=== PATIENT | male | born 1990 | race Caucasian/White ===

== ENCOUNTER 2023-05-17 16:47 | Emergency (ER) | payer BC, SELFPAY ==
--- NOTE | 2023-05-17 16:50 | HMH.EDGENADL ---
Discharge Plan Referrals Follow up/Referrals: Provider,Referral, [Primary Care Provider] - See instructions Discharge ED Provider: Ji Leal Adult HPI General Stated complaint: Ao11/04@1615 RT shoulder inj Time Seen by Provider: 05/17/23 16:50 [facility] Disclaimer: The information contained in this section may have been updated after the patient was seen, as this information can be updated by other users. ROS Obtained: Yes Systems reviewed as appropriate & no additional complaints except as documented As per HPI Physical Exam General General appearance: alert and in no apparent distress Head Head exam: atraumatic and normocephalic Eye Eye exam: Present normal appearance Neck Neck exam: Present normal inspection Chest Chest inspection: Present normal inspection and symmetric chest wall rise Respiratory Respiratory exam: Present normal lung sounds bilaterally; Absent respiratory distress Cardiovascular Cardiovascular exam: Present regular rate and normal rhythm Abdominal Exam Abdominal exam: Present soft Neurological Exam Neurological exam: Present alert and oriented X3 Psychiatric Psychiatric exam: Present normal affect and normal mood Skin Skin exam: Present warm and dry Medical Decision Making Medical Records Medical records reviewed: Yes I reviewed the patient's medical records. Talha Inquiry Pt receiving controlled substance: No Medical Decision Narrative: Patient with history and exam per above presenting for evaluation of Diagnoses considered include ED workup and treatment included: Labs were independently interpreted by me, significant for Imaging was independently visualized and interpreted by me, significant for Symptoms at this time are thought to be most consistent with I discussed my clinical impression with patient and answered all questions. At this time, given reassuring workup and exam, I discussed that I have a low index of suspicion for any acute pathology necessitating inpatient management. Specific return precautions were given, with understanding and agreement. Patient will follow up with primary care provider as needed. I prescribed the following medications upon discharge: Critical Care Critical Care Time Critical Care Time: No
[2023-05-17 16:52] VITALS: BP 131/97; PULSE 76; RESP 18; TEMP 37; O2SAT 99; BMI 36.8
--- NOTE | 2023-05-17 17:02 | XR_ITS ---
PROCEDURE INFORMATION: Exam: XR Right Clavicle, Complete Exam date and time: 05/17/2023 5:07 PM Age: 32 years old Clinical indication: Injury or trauma; Fall; Blunt trauma (contusions or hematomas); Shoulder; Right; Additional info: Pain after fall TECHNIQUE: Imaging protocol: Radiologic exam of the right clavicle. Complete exam. Views: Any number of views. COMPARISON: CR Shoulder R 05/17/2023 5:01 PM FINDINGS: Bones/joints: There is no evidence of acute fracture or dislocation. Joint spaces appear preserved. Soft tissues: No significant soft tissue edema. No subcutaneous emphysema or radiopaque foreign bodies. IMPRESSION: No acute posttraumatic osseous injury.
--- NOTE | 2023-05-17 17:02 | XR_ITS ---
PROCEDURE INFORMATION: Exam: XR Right Shoulder Exam date and time: 05/17/2023 5:01 PM Age: 32 years old Clinical indication: Injury or trauma; Fall; Blunt trauma (contusions or hematomas); Shoulder; Right; Additional info: Pain after fall TECHNIQUE: Imaging protocol: Radiologic exam of the right shoulder. Views: 2 or more views. COMPARISON: No relevant prior studies available. FINDINGS: Bones/joints: There is no evidence of acute fracture or dislocation. Joint spaces appear preserved. Soft tissues: No significant soft tissue edema. No subcutaneous emphysema or radiopaque foreign bodies. The visualized right lung is clear. No pneumothorax. IMPRESSION: No acute posttraumatic osseous injury.
[2023-05-17 18:00] VITALS: BP 132/90; PULSE 82; O2SAT 96
[2023-05-17 18:30] VITALS: BP 131/88; PULSE 78; O2SAT 97
[2023-05-17 18:48] VITALS: BP 133/88; PULSE 91; RESP 18; TEMP 36.6
--- NOTE | 2023-05-17 18:48 | PC.NURSE ---
sling applied to pts r arm.
--- NOTE | 2023-05-22 14:40 | HMH.EDGENADL ---
Discharge Plan Disposition Patient Disposition: Home, Self-Care Condition: Good Prescriptions Prescriptions: No Action metformin 500 mg Tablet 500 mg PO BID Referrals Follow up/Referrals: Michael Coles DO [Staff Physician] - See instructions Provider,Referral, [Primary Care Provider] - See instructions Activity Restrictions/Add. Instructions Additional Instructions/Restrictions: I have placed a referral for you to be seen by the orthopedic doctor for follow-up. Please use the sling for comfort as needed, return with any new or worsening symptoms. Please do not keep your shoulder in the sling at all times. Please take anti-inflammatories such as ibuprofen for the pain. Clinical Impressions Clinical Impression: Injury of shoulder Qualifiers: Encounter type: initial encounter Laterality: right Qualified Code(s): S49.91XA - Unspecified injury of right shoulder and upper arm, initial encounter Discharge ED Provider: Ji Leal General Adult HPI General Chief complaint: Extremity Injury, Upper Stated complaint: Ao11/04@1615 RT shoulder inj Time Seen by Provider: 05/17/23 16:50 Mode of Arrival: Ambulatory Source of Information: Patient Limitations: No Limitations Description of Symptoms (Recalled from ER Triage Doc. by RN): fell and injured r shoulder History of Present Illness HPI narrative: Patient complains of right shoulder pain that is moderate in severity nonradiating after nonsyncopal fall, injury is closed. No pain elsewhere. No previous therapies. Injury occurred today. Denies any distal numbness or tingling. No blood thinner usage. No head injury. Related Data Home Medications Medication Instructions Recorded Confirmed metformin 500 mg tablet 500 mg PO BID 05/17/23 05/17/23 Allergies Allergy/AdvReac Type Severity Reaction Status Date / Time No Known Allergies Allergy Verified 05/17/23 16:56 [facility] Disclaimer: The information contained in this section may have been updated after the patient was seen, as this information can be updated by other users. Social History Smoking Status: Never smoker alcohol intake: never current occupational status: other Travel in the last 8 weeks: None ROS Obtained: Yes Systems reviewed as appropriate & no additional complaints except as documented As per HPI Physical Exam General General appearance: alert and in no apparent distress Head Head exam: atraumatic and normocephalic Eye Eye exam: Present normal appearance Neck Neck exam: Present normal inspection Chest Chest inspection: Present normal inspection and symmetric chest wall rise Respiratory Respiratory exam: Present normal lung sounds bilaterally; Absent respiratory distress Cardiovascular Cardiovascular exam: Present regular rate and normal rhythm Abdominal Exam Abdominal exam: Present soft Extremities Exam Extremities exam: Present other (Right shoulder tenderness to palpation, closed, no overlying external signs of injury. No cervical spinal tenderness to palpation) Neurological Exam Neurological exam: Present alert and oriented X3 Psychiatric Psychiatric exam: Present normal affect and normal mood Skin Skin exam: Present warm and dry Medical Decision Making Medical Records Medical records reviewed: Yes I reviewed the patient's medical records. Talha Inquiry Pt receiving controlled substance: No Vital Signs: 05/17/23 16:52 05/17/23 18:00 05/17/23 18:30 Temperature 98.6 F Temperature Source Oral Pulse Rate 82 78 Pulse Rate [Left] 76 Respiratory Rate 18 Blood Pressure 132/90 131/88 Blood Pressure [Left Arm] 131/97 H Blood Pressure Mean [Left Arm] 108 02 Sat by Pulse Oximetry 99 96 97 Oxygen Delivery Method Room Air Room Air Room Air 05/17/23 18:48 Temperature 98 F Temperature Source Oral Pulse Rate 91 H Pulse Rate [Left] Respiratory Rate 18 Blood Pressure 133/88 Blood Pressure [Left Arm] Blood Pressure Mean [Le
== END 2023-05-17 18:50 | disposition home or self-care (01) ==
PROVIDERS: Emergency Provider Emergency Medicine
DX: S49.91XA Unspecified injury of right shoulder and upper arm, initial encounter (principal); W19.XXXA Unspecified fall, initial encounter
CPT/HCPCS: 73000; 73030; 99283